=== PATIENT | female | born 1955 | race Caucasian/White ===

== ENCOUNTER 2017-02-02 07:35 | Emergency (ER) | payer OTHER ==
[2017-02-02] MEDS: Albuterol-Ipratrop 3 mg / 0.5 (3 ml) UD IH SCH ×2 (08:10→08:21)
[2017-02-02] MEDS ORDERED: Albuterol-Ipratrop 3 mg / 0.5 (3 ml) UD ONE ×2 (08:11→08:26)
--- NOTE | 2017-02-02 08:34 | C.PDOC ---
History Of Present Illness 62-year-old female, PMHx includes COPD complains of SOB this morning, ran out of her inhaler. Patient admits to more frequent smoking last few days. Denies chest pain, palpitations, weakness. Time Seen by Provider: 02/02/17 07:49 Chief Complaint (Nursing): Shortness Of Breath History Per: Patient History/Exam Limitations: no limitations Onset/Duration Of Symptoms: Days Current Symptoms Are (Timing): Still Present Past Medical History Reviewed: Historical Data, Nursing Documentation, Vital Signs Vital Signs: Last Vital Signs Temp 98.2 F 02/02/17 09:32 Pulse 66 02/02/17 09:32 Resp 18 02/02/17 09:32 BP 130/89 02/02/17 09:32 Pulse Ox 96 02/02/17 09:32 - Medical History PMH: Asthma, COPD - [facility] Procedures TETANUS TOXOID ADMINIST (05/28/13) Family History: States: Hypertension - Social History Hx Tobacco Use: Yes Hx Alcohol Use: No Hx Substance Use: No - Immunization History Hx Tetanus Toxoid Vaccination: No Hx Influenza Vaccination: Yes Hx Pneumococcal Vaccination: No Review Of Systems Except As Marked, All Systems Reviewed And Found Negative. Constitutional: Negative for: Fever, Chills Cardiovascular: Negative for: Chest Pain, Palpitations Respiratory: Positive for: Shortness of Breath, Wheezing Gastrointestinal: Negative for: Nausea, Vomiting Musculoskeletal: Negative for: Neck Pain, Back Pain Neurological: Negative for: Headache, Dizziness Physical Exam - Physical Exam Appears: Non-toxic, No Acute Distress Skin: Warm, Dry, No Rash Head: Atraumatic, Normacephalic Eye(s): bilateral: Normal Inspection, PERRL Nose: Normal Oral Mucosa: Moist Lips: Normal Appearing Neck: Normal ROM Chest: Symmetrical Cardiovascular: Rhythm Regular, No Murmur Respiratory: No Accessory Muscle Use, No Rales, No Rhonchi, Wheezing ( expiratory wheeze bilateral lungs) Extremity: Bilateral: Atraumatic, No Pedal Edema, Normal Color And Temperature, Normal ROM Neurological/Psych: Oriented x3, Normal Speech Gait: Steady ED Course And Treatment O2 Sat by Pulse Oximetry: 97 Medical Decision Making Medical Decision Making: Impression Shortness of breath and wheezing over the past few days. Patient w/ a Hx of COPD , ran out of inhaler. Plan: * Duoneb, Prednisone Reassess and Disposition: Upon reevaluation, patient is resting comfortably with no wheezing, SOB or chest pain. Oxygen saturation is adequate. Patient is alert and oriented x 3. Patient was advised to follow up with physician in 1-2 days. Disposition - Disposition Disposition: HOME/ ROUTINE Disposition Time: 08:54 Condition: STABLE Additional Instructions: Vaya a maddox mdico o la clnica en 2-5 knight sin falta, para mas evaluacin. [place] los medicamentos la indicado. Volver a la kartik de emergencia en cualquier momento si los sntomas persisten o empeoran. Prescriptions: Albuterol 0.083% [Albuterol 0.083% Inhal Angelina (2.5 mg/3 ml) UD] 2.5 mg IH Q4 # 100 neb Albuterol HFA [Ventolin HFA 90 mcg/actuation (8 g)] 1 puff IH Q4 #1 puff Prednisone 50 mg PO DAILY #5 tablet Instructions: COPD (Chronic Obstructive Pulmonary Disease) (DC) Print Language: FILIPINO - POA Present On Arrival: None - Clinical Impression Clinical Impression: COPD exacerbation - PA / PAWN BROKER / Resident Statement MD/DO has reviewed & agrees with the documentation as recorded. - Scribe Statement The provider has reviewed the documentation as recorded by the Scribe (Ezio Trent) All medical record entries made by the Scribe were at my direction and personally dictated by me. I have reviewed the chart and agree that the record accurately reflects my personal performance of the history, physical exam, medical decision making, and the department course for this patient. I have also personally directed, reviewed, and agree with the discharge instructions and disposition.
[2017-02-02 09:12] VITALS: PULSE 66; RESP 18
[2017-02-02 09:33] VITALS: BP 130/89; TEMP 98.2
[2017-02-02 15:29] VITALS: O2SAT 97
== END 2017-02-02 09:33 | disposition home or self-care (01) ==
LOC: C.ER 07:35
DX: J44.1 Chronic obstructive pulmonary disease with (acute) exacerbation (principal); Z72.0 Tobacco use

== ENCOUNTER 2017-04-27 07:37 | Emergency (ER) | payer OTHER ==
[2017-04-27] MEDS ORDERED: Albuterol-Ipratrop 3 mg / 0.5 (3 ml) UD INH STA ×3 (08:19→10:02)
[2017-04-27] MEDS ORDERED: Albuterol-Ipratrop 3 mg / 0.5 (3 ml) UD ONE ×2 (08:36→10:11)
[2017-04-27 08:45] LABS: BASO # 0.1 K/uL (0.0-0.2); BASO % 0.8 % (0.0-2.0); EOS # 0.4 K/uL (0.0-0.7); EOS % 5.3 % (0.0-4.0); HEMATOCRIT 44.9 % (34.0-47.0); LYMPH # 2.4 K/uL (1.0-4.3); LYMPH % 34.8 % (20.0-40.0); MEAN CELL VOLUME 87.2 fL (81.0-99.0); MEAN CORPUSCULAR HEMOGLOBIN 29.5 pg (27.0-31.0); MEAN CORPUSCULAR HGB CONC 33.8 g/dL (33.0-37.0); MEAN PLATELET VOLUME 9.2 fL (7.2-11.7); MONO # 0.6 K/uL (0.0-0.8); MONO % 8.1 % (0.0-10.0); NRBC % 0.1 % (0.0-2.0); RED CELL DISTRIBUTION WIDTH 13.1 % (11.5-14.5); WHITE BLOOD COUNT 6.9 K/uL (4.8-10.8)
--- NOTE | 2017-04-27 08:47 | C.PDOC ---
History Of Present Illness Patient is a 62 y/o female, with PMHx of COPD (not steroid dependant), presents to ED for evaluation of cough, difficulty breathing, and shortness of breath for the last 4 days. Pt reports using nebulizer and Albuterol pump at home without any improvement. Pt also complaints of rib cage pain when coughing. Otherwise, denies chest pain, lower extremity pain/swelling, fever, or chills. Time Seen by Provider: 04/27/17 07:45 Chief Complaint (Nursing): Cough, Cold, Congestion History Per: Patient History/Exam Limitations: no limitations Onset/Duration Of Symptoms: Days (4) Current Symptoms Are (Timing): Still Present Quality: "Pain" Exacerbating Factor(s): Coughing Current Respiratory Medications: See Home Med List Associated Symptoms: denies: Fever, Chills, Sweating, Chest Pain, Bloody Cough, Heart Racing, Leg/Calf Pain, Ankle/Leg Swelling, Dizziness, Light-headedness, Anxiety, Tingling In Hands Or Face, Musle Spasms In Hands Or Feet Additional History Per: Patient Past Medical History Reviewed: Historical Data, Nursing Documentation, Vital Signs Vital Signs: Last Vital Signs Temp 98.5 F 04/27/17 10:52 Pulse 66 04/27/17 10:52 Resp 18 04/27/17 10:52 BP 115/76 04/27/17 10:52 Pulse Ox 95 04/27/17 10:57 - Medical History PMH: Asthma, COPD - [facility] Procedures TETANUS TOXOID ADMINIST (05/28/13) Family History: States: Unknown Family Hx, Hypertension - Social History Hx Tobacco Use: Yes Hx Alcohol Use: No Hx Substance Use: No - Immunization History Hx Tetanus Toxoid Vaccination: No Hx Influenza Vaccination: Yes Hx Pneumococcal Vaccination: No Review Of Systems Constitutional: Negative for: Fever, Chills Cardiovascular: Positive for: Other (rib cage pain). Negative for: Chest Pain, Palpitations, Edema, Light Headedness Respiratory: Positive for: Cough, Shortness of Breath. Negative for: Hemoptysis , Sputum Gastrointestinal: Negative for: Nausea, Vomiting Skin: Negative for: Rash Neurological: Negative for: Headache, Dizziness Physical Exam - Physical Exam Appears: Well, Non-toxic, Other (Uncomfortable) Skin: Normal Color, Warm, Dry Head: Atraumatic, Normacephalic Eye(s): bilateral: Normal Inspection, EOMI Oral Mucosa: Moist Neck: Supple Chest: Symmetrical Cardiovascular: Rhythm Regular, No Murmur Respiratory: No Accessory Muscle Use, No Rales, No Rhonchi, Wheezing (wheezing in all lung guerra) Gastrointestinal/Abdominal: Soft, No Tenderness Extremity: Normal ROM, No Pedal Edema Neurological/Psych: Oriented x3, Normal Speech ED Course And Treatment - Laboratory Results Result Diagrams: 04/27/17 08:40 04/27/17 08:40 O2 Sat by Pulse Oximetry: 95 (on RA) Pulse Ox Interpretation: Normal Medical Decision Making Medical Decision Making: EKG, CXR, blood work ordered and reviewed. Pt was given Tylenol, Solu-Medrol, and nebulizer treatment. pt feeling much better after 2 nebulizer treatments and steroids, lungs with scant intermittent wheeze on left side. cxr neg, will give another neb and re- eval for discharge. pf after 2 nebs 250 1054 am pt feeling completely well, no wheezing on re-eval, will d/c with steroids and zpak, pmd f/u Disposition - Disposition Referrals: Hung Scott MD [Medical Doctor] - Disposition: HOME/ ROUTINE Disposition Time: 10:55 Condition: IMPROVED Additional Instructions: Follow up with your doctor in 1-2 days. Take medications as prescribed. Return to er for any worsening symptoms,. Prescriptions: Albuterol 0.083% [Albuterol 0.083% Inhal Angelina (2.5 mg/3 ml) UD] 2.5 mg IH TID # 100 neb Albuterol HFA [Ventolin HFA 90 mcg/actuation (8 g)] 2 puff IH Q6 #1 inhaler predniSONE [predniSONE Tab] 2 tab PO DAILY #8 tab Instructions: Asthma (ED), COPD (Chronic Obstructive Pulmonary Disease) (ED) Forms: Gen Discharge Inst Guyanese, [employer] (Guyanese) Print Language: ALBANIAN - Clinical Impression Clinical Impression: COPD exacerbation - PA / PROCESS LEAD / Resident Statement MD/DO has reviewed & agrees with the documentation as recorded. - Scribe Statement The provider has reviewed the documentation as recorded by the Scribe Colt Wilson All medical record entries made by the Scribe were at my direction and personally dictated by me. I have reviewed the chart and agree that the record accurately reflects my personal performance of the history, physical exam, medical decision making, and the department course for this patient. I have also personally directed, reviewed, and agree with the discharge instructions and disposition.
[2017-04-27 08:58] LABS: CHLORIDE 109 mmol/L (98-107); SODIUM 142 mmol/L (132-148)
[2017-04-27 09:00] LABS: BILIRUBIN,TOTAL 0.8 mg/dL (0.2-1.3); GFR AFRICAN-AMERICAN > 60
[2017-04-27 09:01] LABS: ALB/GLOB RATIO 1.3 (1.0-2.1); ALKALINE PHOSPHATASE 90 U/L (38-126); ALT/SGPT 35 U/L (9-52); AST/SGOT 26 U/L (14-36); BLOOD UREA NITROGEN 15 mg/dL (7-17); CARBON DIOXIDE 22 mmol/L (22-30); GLUCOSE,RANDOM 84 mg/dL (65-105); TOTAL PROTEIN 7.1 g/dL (6.3-8.3)
[2017-04-27 09:02] LABS: CALCIUM 8.9 mg/dl (8.6-10.4)
--- NOTE | 2017-04-27 09:42 | RAD ---
HISTORY: Shortness of breath COMPARISON: 04/10/2014 TECHNIQUE: Chest PA and lateral FINDINGS: LUNGS: No focal infiltrate or effusion. Nodular densities at the lung bases may represent prominent nipple shadows. PLEURA: No significant pleural effusion identified. No pneumothorax apparent. CARDIOVASCULAR: Normal. OSSEOUS STRUCTURES: No significant abnormalities. VISUALIZED UPPER ABDOMEN: Normal. OTHER FINDINGS: None. IMPRESSION: No focal infiltrate or effusion. Nodular densities at the lung bases may represent prominent nipple shadows.
[2017-04-27 10:52] VITALS: BP 115/76; PULSE 66; RESP 18; TEMP 98.5
[2017-04-27 10:57] VITALS: O2SAT 95
--- NOTE | 2017-04-30 10:21 | CARD ---
APPROVED REPORT EKG Measurement Heart [id number] <Conclusion> Normal sinus rhythm Normal ECG
== END 2017-04-27 11:10 | disposition home or self-care (01) ==
LOC: C.ER 07:37
DX: J44.1 Chronic obstructive pulmonary disease with (acute) exacerbation (principal)
CPT/HCPCS: 71020; 80053; 85025; 93005; 94150; 94640; 96374; 99284; J2930

== ENCOUNTER 2017-05-12 18:32 | Emergency (ER) | payer OTHER ==
[2017-05-12 18:43] VITALS: BMI 29.2
[2017-05-12] MEDS ORDERED: Sodium Chloride 0.9% 1,000 ML IV ONE (19:01)
[2017-05-12] MEDS ORDERED: Albuterol-Ipratrop 3 mg / 0.5 (3 ml) UD INH STA ×3 (19:02→19:03)
--- NOTE | 2017-05-12 19:07 | C.PDOC ---
History Of Present Illness 62 y/o female with a Hx of COPD, c/o SOB since 03:00 this morning. Patient notes that she used her nebulizer treatment with no effect. Denies chest pain, palpitations, lower extremity pain or swelling, or diaphoresis. NO fever or chills. Time Seen by Provider: 05/12/17 19:06 Chief Complaint (Nursing): Shortness Of Breath History Per: Patient History/Exam Limitations: no limitations Onset/Duration Of Symptoms: Hrs (03:00 this morning) Current Symptoms Are (Timing): Still Present Current Respiratory Medications: Albuterol Severity: Mild Associated Symptoms: denies: Fever, Chills Recent travel outside of the [place]: No Additional History Per: Patient Past Medical History Reviewed: Historical Data, Nursing Documentation, Vital Signs Vital Signs: Last Vital Signs Temp 98.3 F 05/12/17 18:43 Pulse 75 05/12/17 18:43 Resp 20 05/12/17 19:10 BP 117/76 05/12/17 18:43 Pulse Ox 97 05/12/17 20:22 - Medical History PMH: Asthma, COPD - [facility] Procedures TETANUS TOXOID ADMINIST (05/28/13) Family History: States: Unknown Family Hx, Hypertension - Social History Hx Tobacco Use: Yes Hx Alcohol Use: No Hx Substance Use: No - Immunization History Hx Tetanus Toxoid Vaccination: No Hx Influenza Vaccination: No Hx Pneumococcal Vaccination: No Review Of Systems Except As Marked, All Systems Reviewed And Found Negative. Constitutional: Negative for: Fever, Chills, Sweats Cardiovascular: Negative for: Chest Pain, Palpitations Respiratory: Positive for: Shortness of Breath Musculoskeletal: Negative for: Leg Pain, Foot Pain Physical Exam - Physical Exam Appears: Non-toxic, No Acute Distress Skin: Warm, Dry Head: Atraumatic, Normacephalic Oral Mucosa: Moist Chest: Symmetrical Cardiovascular: Rhythm Regular, No Murmur Respiratory: Decreased Breath Sounds, No Rales, Rhonchi (Bilateral), Wheezing ( Bilateral) Gastrointestinal/Abdominal: Soft, No Tenderness Extremity: Normal ROM, No Tenderness, Capillary Refill (<2secs), No Swelling Neurological/Psych: Oriented x3 Gait: Steady ED Course And Treatment - Laboratory Results Result Diagrams: 05/12/17 19:33 05/12/17 19:33 ECG: Interpreted By Me, Viewed By Me ECG Rhythm: Sinus Rhythm ECG Interpretation: Normal, No Acute Changes Interpretation Of ECG: NSR, normal tracings Rate From EC O2 Sat by Pulse Oximetry: 97 (Nebulizer treatment) Pulse Ox Interpretation: Normal - Radiology CXR: Interpreted by Me CXR Interpretation: Yes: Other (possible infiltrate Right lower lung field) Medical Decision Making Medical Decision Making: Impression: SOB since this morning. Plans: * EKG * Blood labs * ALbuterol * IV fluids * CXR Disposition Counseled Patient/Family Regarding: Diagnosis - Disposition Referrals: [facility] [Outside] Disposition: HOME/ ROUTINE Disposition Time: 20:38 Condition: STABLE Prescriptions: Albuterol/Ipratropium [Duoneb 3 MG/3 Ml-0.5 MG/3 Ml 3 Ml] 1 ea IH Q6 #20 neb Azithromycin [Zithromax] 500 mg PO DAILY #7 tablet Methylprednisolone [Medrol Dose Pack (21 tabs)] 4 mg PO DAILY #21 mg Instructions: COPD (Chronic Obstructive Pulmonary Disease) (GEN), Upper Respiratory Infection (ED) Forms: Instilling Values (Frisian) - POA Present On Arrival: None - Clinical Impression Clinical Impression: Respiratory tract infection, COPD exacerbation - Scribe Statement The provider has reviewed the documentation as recorded by the Scribe Wilfred nelson All medical record entries made by the Scribe were at my direction and personally dictated by me. I have reviewed the chart and agree that the record accurately reflects my personal performance of the history, physical exam, medical decision making, and the department course for this patient. I have also personally directed, reviewed, and agree with the discharge instructions and disposition.
[2017-05-12] MEDS ORDERED: Albuterol-Ipratrop 3 mg / 0.5 (3 ml) UD ONE ×2 (19:30→19:35)
[2017-05-12 19:35] LABS: BASO # 0.1 K/uL (0.0-0.2); BASO % 0.7 % (0.0-2.0); EOS # 0.6 K/uL (0.0-0.7); EOS % 5.2 % (0.0-4.0); HEMATOCRIT 42.2 % (34.0-47.0); LYMPH # 3.3 K/uL (1.0-4.3); LYMPH % 28.4 % (20.0-40.0); MEAN CELL VOLUME 88.1 fL (81.0-99.0); MEAN CORPUSCULAR HEMOGLOBIN 29.3 pg (27.0-31.0); MEAN CORPUSCULAR HGB CONC 33.3 g/dL (33.0-37.0); MONO # 0.7 K/uL (0.0-0.8); MONO % 6.3 % (0.0-10.0); NRBC % 0.1 % (0.0-2.0); RED CELL DISTRIBUTION WIDTH 13.2 % (11.5-14.5); WHITE BLOOD COUNT 11.6 K/uL (4.8-10.8)
[2017-05-12] MEDS ORDERED: Sodium Chloride 0.9% 1,000 ML ONE (19:36)
[2017-05-12 19:47] LABS: CHLORIDE 105 mmol/L (98-107); SODIUM 143 mmol/L (132-148)
[2017-05-12 19:49] LABS: BILIRUBIN,TOTAL 0.4 mg/dL (0.2-1.3); CARBON DIOXIDE 24 mmol/L (22-30); GFR AFRICAN-AMERICAN > 60
[2017-05-12 19:50] LABS: ALB/GLOB RATIO 1.3 (1.0-2.1); ALKALINE PHOSPHATASE 101 U/L (38-126); ALT/SGPT 28 U/L (9-52); AST/SGOT 20 U/L (14-36); BLOOD UREA NITROGEN 15 mg/dL (7-17); CALCIUM 9.2 mg/dl (8.6-10.4); GLUCOSE,RANDOM 95 mg/dL (65-105); TOTAL PROTEIN 6.8 g/dL (6.3-8.3)
[2017-05-12] MEDS ORDERED: Azithromycin 500mg/250ML NS 500 MG/250 ML BAG IV STA (20:22)
[2017-05-12] MEDS ORDERED: Azithromycin 500mg/250ML NS 500 MG/250 ML BAG IVPB ONE (20:30)
[2017-05-12 20:58] VITALS: BP 123/82; PULSE 83; RESP 18; TEMP 97.7; O2SAT 99
--- NOTE | 2017-05-13 11:05 | RAD ---
HISTORY: SOB COMPARISON: Comparison chest 04/27/2017 TECHNIQUE: Chest PA and lateral FINDINGS: LUNGS: The interstitial markings are somewhat increased and coarsened ; rule out sequela of reactive/inflammatory airway disease or viral illness. PLEURA: . No pneumothorax apparent. CARDIOVASCULAR: Normal. OSSEOUS STRUCTURES: Mild multilevel degenerative spondylosis of the thoracic spine VISUALIZED UPPER ABDOMEN: Normal. OTHER FINDINGS: None. IMPRESSION: The interstitial markings are somewhat increased and coarsened ; rule out sequela of reactive/inflammatory airway disease or viral illness.
--- NOTE | 2017-05-16 22:11 | CARD ---
APPROVED REPORT EKG Measurement Heart [id number] SC [id number] <Conclusion> Normal sinus rhythm Normal ECG
== END 2017-05-12 20:57 | disposition home or self-care (01) ==
LOC: C.ER 18:32
DX: J98.8 Other specified respiratory disorders (principal); J44.1 Chronic obstructive pulmonary disease with (acute) exacerbation
CPT/HCPCS: 71020; 80053; 83880; 84484; 85025; 85378; 94640; 96365; 96375; 99284; J0456; J2930; J7040

== ENCOUNTER 2017-06-02 08:11 | Emergency (ER) | payer OTHER ==
[2017-06-02 08:11] VITALS: BMI 29.2
[2017-06-02] MEDS ORDERED: Albuterol-Ipratrop 3 mg / 0.5 (3 ml) UD INH STA ×3 (08:24→08:25)
[2017-06-02] MEDS ORDERED: Albuterol-Ipratrop 3 mg / 0.5 (3 ml) UD ONE ×2 (08:26→08:41)
[2017-06-02 09:13] LABS: EOS # 0.4 K/uL (0.0-0.7)
[2017-06-02 09:16] LABS: CHLORIDE 106 mmol/L (98-107)
[2017-06-02 09:17] LABS: BASO % 0.7 % (0.0-2.0); HEMATOCRIT 44.2 % (34.0-47.0); LYMPH # 2.4 K/uL (1.0-4.3); LYMPH % 35.9 % (20.0-40.0); MEAN CELL VOLUME 88.1 fL (81.0-99.0); MEAN CORPUSCULAR HEMOGLOBIN 29.7 pg (27.0-31.0); MEAN CORPUSCULAR HGB CONC 33.7 g/dL (33.0-37.0); MEAN PLATELET VOLUME 9.5 fL (7.2-11.7); MONO # 0.5 K/uL (0.0-0.8); MONO % 7.1 % (0.0-10.0); NRBC % 0.2 % (0.0-2.0); POTASSIUM 5.6 mmol/L (3.6-5.2); RED CELL DISTRIBUTION WIDTH 13.2 % (11.5-14.5); SODIUM 138 mmol/L (132-148); WHITE BLOOD COUNT 6.8 K/uL (4.8-10.8)
[2017-06-02 09:19] LABS: ALKALINE PHOSPHATASE 86 U/L (38-126); AST/SGOT 45 U/L (14-36); BILIRUBIN,TOTAL 1.6 mg/dL (0.2-1.3); BLOOD UREA NITROGEN 13 mg/dL (7-17); CARBON DIOXIDE 26 mmol/L (22-30); GFR AFRICAN-AMERICAN > 60; GLUCOSE,RANDOM 90 mg/dL (65-105); TOTAL PROTEIN 8.2 g/dL (6.3-8.3)
[2017-06-02 09:20] LABS: ALT/SGPT 21 U/L (9-52); CALCIUM 8.8 mg/dl (8.6-10.4)
[2017-06-02 09:27] LABS: ALB/GLOB RATIO 1.1 (1.0-2.1)
[2017-06-02] MEDS ORDERED: Albuterol 0.083% Inhal Sol (2.5 mg/3 mL) UD INH STA (10:04)
[2017-06-02] MEDS ORDERED: Albuterol 0.083% Inhal Sol (2.5 mg/3 mL) UD ONE (10:19)
--- NOTE | 2017-06-02 11:08 | RAD ---
PROCEDURE: CHEST RADIOGRAPH, 1 VIEW HISTORY: SOB COMPARISON: Chest radiographs 05/12/2017. FINDINGS: LUNGS: Minimal elevation left hemidiaphragm is identified. Inspiratory volume is slightly diminished. No infiltrates bilaterally. PLEURA: No pneumothorax or pleural fluid seen. CARDIOVASCULAR: Normal. OSSEOUS STRUCTURES: No significant abnormalities. VISUALIZED UPPER ABDOMEN: Normal. OTHER FINDINGS: None. IMPRESSION: Minimal elevation left hemidiaphragm is appreciated of uncertain origin. Inspiratory volume is slightly decreased as well. No acute infiltrate or pleural effusion. Cardiac silhouette remains normal.
[2017-06-02 11:31] VITALS: BP 132/70; PULSE 90; RESP 16; TEMP 98.2; O2SAT 100
--- NOTE | 2017-06-02 15:19 | C.PDOC ---
History Of Present Illness 62 year old female presents to the ED with complaints of asthma exacerbation for four days. Patient reports use of pump and nebulizer with little effect. Patient denies cough, fever, chest pain, abdominal pain, recent travel, or sick contacts. Chief Complaint (Nursing): Shortness Of Breath History Per: Patient History/Exam Limitations: no limitations Onset/Duration Of Symptoms: Days (4 days ) Current Symptoms Are (Timing): Still Present Associated Symptoms: denies: Fever, Chills, Chest Pain Recent travel outside of the [place]: No Past Medical History Reviewed: Historical Data, Nursing Documentation, Vital Signs Vital Signs: Last Vital Signs Temp 98.2 F 06/02/17 11:29 Pulse 90 06/02/17 11:29 Resp 16 06/02/17 11:29 BP 132/70 06/02/17 11:29 Pulse Ox 100 06/02/17 21:01 - Medical History PMH: Asthma, COPD - [facility] Procedures TETANUS TOXOID ADMINIST (05/28/13) Family History: States: Unknown Family Hx, Hypertension - Social History Hx Tobacco Use: Yes Hx Alcohol Use: No Hx Substance Use: No - Immunization History Hx Tetanus Toxoid Vaccination: No Hx Influenza Vaccination: No Hx Pneumococcal Vaccination: No Review Of Systems Constitutional: Negative for: Fever, Chills Cardiovascular: Negative for: Chest Pain, Palpitations Respiratory: Positive for: Other (asthma exacerbation ) Gastrointestinal: Negative for: Nausea, Vomiting, Abdominal Pain, Diarrhea Physical Exam - Physical Exam Appears: Non-toxic, No Acute Distress Skin: Warm, Dry Head: Atraumatic, Normacephalic Eye(s): bilateral: Normal Inspection, PERRL, EOMI Oral Mucosa: Moist Neck: Supple Chest: Symmetrical, No Deformity Cardiovascular: Rhythm Regular, No Murmur Respiratory: No Rales, No Rhonchi, Wheezing (bilateral expiratory wheeze with good air entry ) Gastrointestinal/Abdominal: Soft, No Tenderness, No Distention, No Guarding, No Rebound Extremity: Normal ROM, No Tenderness Neurological/Psych: Oriented x3 ED Course And Treatment - Laboratory Results Result Diagrams: 06/02/17 09:06 06/02/17 09:06 O2 Sat by Pulse Oximetry: 100 (RA) Progress Note: EKG and blood work were ordered. Patient was given albuterol and solu-medrol. Disposition - Disposition Referrals: [facility], [Non-Staff] - Disposition: HOME/ ROUTINE Disposition Time: 10:45 Condition: GOOD Additional Instructions: Thank you for letting us take care of you today. Your provider was Dr. Juárez. You were treated for asthma. The emergency medical care you received today was directed at your acute symptoms. If you were prescribed any medication , please fill it and take as directed. It may take several days for your symptoms to resolve. Return to the Emergency Department if your symptoms worsen , do not improve, or if you have any other problems. Please contact your doctor or call one of the physicians/clinics you have been referred to that are listed on the Patient Visit Information form that is included in your discharge packet. Bring any paperwork you were given at discharge with you along with any medications you are taking to your follow up visit. Our treatment cannot replace ongoing medical care by a primary care provider (PCP) outside of the emergency department. Thank you for allowing the [facility] team to be part of your care today. Follow up with your doctor in 2-3 days for re-evaluation and further management. Prescriptions: predniSONE [Prednisone] 40 mg PO DAILY #10 tab Instructions: Asthma (ED) Forms: [employer] (Croatian) - Clinical Impression Clinical Impression: Asthma - Scribe Statement The provider has reviewed the documentation as recorded by the Scribe Mari Rose All medical record entries made by the Scribe were at my direction and personally dictated by me. I have reviewed the chart and agree that the record accurately reflects my personal performance of the history, physical exam, medical decision making, and the department course for this patient. I have also personally directed, reviewed, and agree with the discharge instructions and disposition.
--- NOTE | 2017-06-03 14:09 | CARD ---
APPROVED REPORT EKG Measurement Heart [id number] <Conclusion> Normal sinus rhythm Normal ECG
== END 2017-06-02 11:30 | disposition home or self-care (01) ==
LOC: C.ER 08:11
DX: J45.909 Unspecified asthma, uncomplicated (principal)
CPT/HCPCS: 71010; 80053; 83880; 84484; 85025; 87040; 87804; 93005; 94640; 96374; 99285; J2930

== ENCOUNTER 2017-07-10 04:01 | Emergency (ER) | payer OTHER ==
[2017-07-10 04:02] VITALS: BMI 29.2
[2017-07-10] MEDS ORDERED: Albuterol-Ipratrop 3 mg / 0.5 (3 ml) UD ONE ×3 (04:06→06:30)
[2017-07-10] MEDS ORDERED: Albuterol-Ipratrop 3 mg / 0.5 (3 ml) UD INH STA ×3 (04:11→05:10)
--- NOTE | 2017-07-10 05:42 | C.PDOC ---
History Of Present Illness 62 y/o female with hx copd and asthma comes to ed with wheezing and sob that started earlier in the evening around 10 pm after cleaning her bathroom with chlorox. pt sts she used nebs at home with no relief. pt has cough with white sputum, no fevers. no hx intubations. Time Seen by Provider: 07/10/17 04:28 Chief Complaint (Nursing): Shortness Of Breath History Per: Patient History/Exam Limitations: no limitations Onset/Duration Of Symptoms: Hrs (7) Current Symptoms Are (Timing): Still Present Initiating Event: Other (exposure to chlorox when cleaning bathroom) Quality: Tightness Current Respiratory Medications: Albuterol, Other (forgot others) Severity: Moderate Associated Symptoms: Productive Cough (white) Reports Recently: Seen In ED Recent travel outside of the [place]: No Past Medical History Reviewed: Historical Data, Nursing Documentation, Vital Signs Vital Signs: Last Vital Signs Temp 98.4 F 07/10/17 06:18 Pulse 82 07/10/17 06:18 Resp 18 07/10/17 06:32 BP 110/74 07/10/17 06:18 Pulse Ox 96 07/10/17 06:32 - Medical History PMH: Anxiety, Asthma, COPD - [facility] Procedures TETANUS TOXOID ADMINIST (05/28/13) Family History: States: Unknown Family Hx, Hypertension - Social History Hx Tobacco Use: Yes Hx Alcohol Use: No Hx Substance Use: No - Immunization History Hx Tetanus Toxoid Vaccination: No Hx Influenza Vaccination: No Hx Pneumococcal Vaccination: No Review Of Systems Constitutional: Negative for: Fever, Chills Cardiovascular: Positive for: Chest Pain (tightness). Negative for: Palpitations Respiratory: Positive for: Cough, Shortness of Breath, Sputum (white), Wheezing Gastrointestinal: Negative for: Vomiting, Abdominal Pain Musculoskeletal: Positive for: Shoulder Pain (right) Neurological: Negative for: Weakness, Numbness Physical Exam - Physical Exam Appears: Non-toxic, No Acute Distress Skin: Normal Color, Warm, Dry Head: Atraumatic, Normacephalic Oral Mucosa: Moist Tongue: Normal Appearing Lips: Normal Appearing Neck: Supple Cardiovascular: No Murmur Respiratory: No Accessory Muscle Use, Wheezing (in all guerra) Gastrointestinal/Abdominal: Soft, No Tenderness Extremity: No Pedal Edema Neurological/Psych: Oriented x3, Normal Speech, Normal Cognition ED Course And Treatment O2 Sat by Pulse Oximetry: 95 Medical Decision Making Medical Decision Making: pt wheezing with hx asthma. max pf unknown. initial pf 140 before first neb. 150 after, then 190 after second neb. pt given pf meter to take home and explained importance of keeping track of number for accuracy 625 am pt sts she feels better, minimal chest tightness, pf approx 180-190 with good effort and still wheezing in all guerra. another neb treatment ordered. Disposition - Disposition Referrals: Coleman Moreno MD [Primary Care Provider] - Disposition Time: 07:07 Condition: STABLE Forms: [employer] (Divehi) - Clinical Impression Clinical Impression: Asthma Physician Patient Turnover Patient Signed Over To: Aliza Osman Handoff Comments: re-eval after third neb tx for need for admission vs discharge
[2017-07-10 07:36] VITALS: BP 138/84; PULSE 78; RESP 20; TEMP 97.6; O2SAT 100
[2017-07-10] MEDS ORDERED: MethylPREDNISolone 40 mg Vial IVP STA (07:46)
--- NOTE | 2017-07-10 09:36 | RAD ---
HISTORY: SHORTNESS OF BREATH COMPARISON: Portable chest 06/02/2017. FINDINGS: LUNGS: No active pulmonary disease. PLEURA: No significant pleural effusion identified, no pneumothorax apparent. CARDIOVASCULAR: Normal. OSSEOUS STRUCTURES: No significant abnormalities. VISUALIZED UPPER ABDOMEN: Normal. OTHER FINDINGS: None. IMPRESSION: No interval acute cardiopulmonary disease appreciated.
== END 2017-07-10 08:44 | disposition home or self-care (01) ==
LOC: C.ER 04:01 → SUPCPDRO 04:01 → C.ER 08:44
DX: J45.909 Unspecified asthma, uncomplicated (principal); F17.210 Nicotine dependence, cigarettes, uncomplicated
CPT/HCPCS: 71010; 96374; 99285; J2920

== ENCOUNTER 2018-08-13 08:15 | Emergency (ER) | payer OTHER ==
[2018-08-13 08:15] VITALS: BMI 29.2
[2018-08-13] MEDS ORDERED: Albuterol-Ipratrop 3 mg / 0.5 (3 ml) UD ONE ×2 (08:26→08:54)
--- NOTE | 2018-08-13 10:02 | C.PDOC ---
History Of Present Illness 63 year old female, whose past medical history includes asthma, presents to the ED for evaluation of cough and shortness of breath which began 3 days ago. Patient reports positive contact with sick family members. She denies fever, chills, and chest pain at this time. Time Seen by Provider: 08/13/18 08:28 Chief Complaint (Nursing): Shortness Of Breath History Per: Patient History/Exam Limitations: no limitations Onset/Duration Of Symptoms: Days (3) Current Symptoms Are (Timing): Still Present Quality: denies: "Pain" Current Respiratory Medications: See Home Med List Associated Symptoms: denies: Fever, Chills Additional History Per: Patient Past Medical History Reviewed: Historical Data, Nursing Documentation, Vital Signs Vital Signs: Last Vital Signs Temp 97.5 F L 08/13/18 08:20 Pulse 74 08/13/18 08:20 Resp 20 08/13/18 08:20 BP 129/82 08/13/18 08:20 Pulse Ox 97 08/13/18 08:20 - Medical History PMH: Anxiety, Asthma, COPD Surgical History: No Surg Hx - [facility] Procedures TETANUS TOXOID ADMINIST (05/28/13) Family History: States: Hypertension - Social History Hx Tobacco Use: Yes Hx Alcohol Use: No Hx Substance Use: No - Immunization History Hx Tetanus Toxoid Vaccination: No Hx Influenza Vaccination: No Hx Pneumococcal Vaccination: No Review Of Systems Constitutional: Negative for: Fever, Chills Cardiovascular: Negative for: Chest Pain Respiratory: Positive for: Cough, Shortness of Breath Physical Exam - Physical Exam Appears: Non-toxic, No Acute Distress Skin: Normal Color, Warm, Dry Head: Atraumatic, Normacephalic Eye(s): bilateral: Normal Inspection Ear(s): Bilateral: Normal Nose: Normal, No Discharge Oral Mucosa: Moist Throat: Normal, No Erythema, No Exudate Neck: Supple Chest: Symmetrical, No Deformity, No Tenderness Cardiovascular: Rhythm Regular, No Murmur Respiratory: No Rales, No Rhonchi, Wheezing (diffuse, bilaterally ) Extremity: Normal ROM, Capillary Refill (less than 2 seconds ) Neurological/Psych: Oriented x3, Normal Speech, Normal Cognition ED Course And Treatment O2 Sat by Pulse Oximetry: 97 Pulse Ox Interpretation: Normal Medical Decision Making Medical Decision Making: Impression: 63 year old female with cough and shortness of breath for 3 days Plan: * Albuterol INH * Prednisone PO * reassess and disposition Progress: Albuterol INH and Prednisone PO given. On reassessment, patient is resting comfortably with no wheezing, chest pain, or retractions. Patient is alert and oriented x 3, showing no signs of respiratory distress and is stable for discharge. Patient is advised to follow up with her PMD within 1-2 days for further evaluation and understands to return to the ED if symptoms persist or worsen. Disposition Counseled Patient/Family Regarding: Diagnosis, Need For Followup, Rx Given - Disposition Referrals: Hung Scott MD [Medical Doctor] - Disposition: HOME/ ROUTINE Disposition Time: 10:00 Condition: STABLE Additional Instructions: Follow up with your primary medical doctor or clinic in 2-5 days for further evaluation. Take medications as prescribed. Return to the emergency department at any time if symptoms persist or worsen. Prescriptions: Albuterol HFA [Ventolin HFA 90 mcg/actuation (8 g)] 1 puff IH Q4 #1 puff Azithromycin [Zithromax] 250 mg PO DAILY #6 tab Prednisone 50 mg PO DAILY #5 tablet Instructions: Asthma, Adult (DC) Forms: [employer]al (Bolivian) - POA Present On Arrival: None - Clinical Impression Clinical Impression: Asthma, Respiratory tract infection - PA / [employer] / Resident Statement MD/DO has reviewed & agrees with the documentation as recorded. - Scribe Statement The provider has reviewed the documentation as recorded by the Scribe (Nadiya Wilson) All medical record entries made by the Scribe were at my direction and personally dictated by me. I have reviewed the chart and agree that the record accurately reflects my personal performance of the history, physical exam, medical decision making, and the department course for this patient. I have also personally directed, reviewed, and agree with the discharge instructions and disposition.
[2018-08-13] MEDS: Albuterol-Ipratrop 3 mg / 0.5 (3 ml) UD IH SCH (10:24)
[2018-08-13 10:25] VITALS: BP 130/87; PULSE 78; RESP 18; TEMP 97.8
[2018-08-13 10:35] VITALS: O2SAT 97
== END 2018-08-13 10:26 | disposition home or self-care (01) ==
LOC: C.ER 08:15
DX: J45.909 Unspecified asthma, uncomplicated (principal); J98.8 Other specified respiratory disorders; Z72.0 Tobacco use

== ENCOUNTER 2018-08-15 11:46 | Emergency (ER) | payer MEDICAID, OTHER ==
[2018-08-15] MEDS ORDERED: Albuterol-Ipratrop 3 mg / 0.5 (3 ml) UD ONE (15:02)
[2018-08-15] MEDS ORDERED: Albuterol 0.042% Inhal Sol (1.25 mg/3 mL) UD ONE (15:03)
[2018-08-15 15:13] VITALS: BMI 21.5
[2018-08-15 15:17] LABS: BASO % 0.2 % (0.0-2.0); HEMOGLOBIN 14.3 g/dL (11.0-16.0); LYMPH # 1.2 K/uL (1.0-4.3); LYMPH % 11.3 % (20.0-40.0); MEAN CELL VOLUME 88.4 fL (81.0-99.0); MEAN CORPUSCULAR HEMOGLOBIN 29.2 pg (27.0-31.0); MEAN CORPUSCULAR HGB CONC 33.1 g/dL (33.0-37.0); MEAN PLATELET VOLUME 9.7 fL (7.2-11.7); MONO # 0.4 K/uL (0.0-0.8); MONO % 3.6 % (0.0-10.0); NEUT # 9.3 K/uL (1.8-7.0); NEUT % 84.9 % (50.0-75.0); NRBC % 0.1 % (0.0-2.0); RBC 4.88 Mil/uL (3.80-5.20); RED CELL DISTRIBUTION WIDTH 13.5 % (11.5-14.5)
--- NOTE | 2018-08-15 15:33 | RAD ---
HISTORY: cough COMPARISON: Chest x-ray performed 07/10/17 TECHNIQUE: Chest PA and lateral FINDINGS: LUNGS: Mild left basilar atelectasis. Please note that chest x-ray has limited sensitivity for the detection of pulmonary masses. PLEURA: No significant pleural effusion identified. No definite pneumothorax . CARDIOVASCULAR: Heart size appears within normal limits. No atherosclerotic calcification present. OSSEOUS STRUCTURES: No acute osseous abnormality identified. VISUALIZED UPPER ABDOMEN: Unremarkable. OTHER FINDINGS: None. IMPRESSION: Mild left basilar atelectasis.
--- NOTE | 2018-08-15 16:21 | C.PDOC ---
Time Seen by Provider: 08/15/18 14:34 Past Medical History - Medical History PMH: Anxiety, Asthma, COPD - [facility] Procedures TETANUS TOXOID ADMINIST (05/28/13) Family History: States: Unknown Family Hx, Hypertension - Social History Hx Tobacco Use: Yes Hx Alcohol Use: No Hx Substance Use: No - Immunization History Hx Tetanus Toxoid Vaccination: No Hx Influenza Vaccination: No Hx Pneumococcal Vaccination: No ED Course And Treatment - Laboratory Results Result Diagrams: 08/15/18 15:11 Disposition Counseled Patient/Family Regarding: Studies Performed, Diagnosis, Need For Followup, Rx Given - Disposition Disposition: HOME/ ROUTINE Disposition Time: 16:21 Condition: IMPROVED Prescriptions: Albuterol 0.083% [Albuterol Sulfate 3 Ml] 3 ml IH QID PRN #120 neb PRN Reason: Wheezing Instructions: Exacerbation of COPD Print Language: TUNISIAN - Clinical Impression Clinical Impression: COPD exacerbation
[2018-08-15 17:33] VITALS: BP 144/76; PULSE 71; RESP 18; TEMP 98.4; O2SAT 96
== END 2018-08-15 17:02 | disposition home or self-care (01) ==
LOC: C.ER 11:46
DX: J44.1 Chronic obstructive pulmonary disease with (acute) exacerbation (principal)